=== PATIENT | male | born 1985 | race Caucasian/White ===

== ENCOUNTER 2021-04-05 08:31 | Emergency (ER) | payer BC ==
[~2021-04-05 08:31] MED LIST: BUSPAR 5MG TABLE5 MG PO; DOSS PO; IBUPROFEN400 MG PO; IBUPROFEN800 MG PO; NORCO 7.5-3251 EACH PO; TYLENOL 500 MG500 MG PO; ZOFRAN4 MG PO
[2021-04-05 09:29] LABS: HEMOGLOBIN 15.6 gm/dl (14.0-17.5); RED BLOOD COUNT 4.83 M/UL (4.20-5.50); WHITE BLOOD COUNT 6.9 K/UL (4.5-11.0)
[2021-04-05 09:50] LABS: BUN/CREATININE RATIO 11 (0-10)
[2021-04-05] MEDS ORDERED: DOXYCYCLINE HY100 M2 PO (11:51)
== END 2021-04-05 12:34 | disposition home or self-care (01) ==
LOC: ER1 08:31
PROVIDERS: Emergency Medicine
DX: N50.811 Right testicular pain (principal); R10.9 Unspecified abdominal pain; R91.1 Solitary pulmonary nodule; Z87.442 Personal history of urinary calculi; Z20.822 Contact with and (suspected) exposure to COVID-19
CPT/HCPCS: 76870; 80053; 81001; 85025; 96374; 96375; 99284; J2270; J2405; U0002